=== PATIENT | male | born 1970 | race Caucasian/White ===

== ENCOUNTER 2016-12-08 15:55 | Emergency (ER) | payer MEDICARE, OTHER ==
[2016-12-08] MEDS ORDERED: ACETAMINOPHEN 325 MG TABLET PO ONE (16:52)
[2016-12-08] MEDS ORDERED: CLINDAMYCIN HCL 150 MG CAPSULE PO ONE (18:00)
[2016-12-08 18:26] VITALS: BP 138/81
--- NOTE | 2016-12-11 09:19 | ER Document Report ---
HPI - HPI Patient complains to provider of: fish hook in finger Pain Level: 1 Context: Patient is a 46-year-old male presents emergency Department with a fishhook in his right ring finger. Patient states that he was cleaning out his garage when he went to pick something up and hit a pack of fishhooks with one puncture packaging into his right ring finger. Patient states this is brand-new pack not had any exposure to water. Tetanus is up-to-date from a month ago. On Plavix due to history of coronary artery disease was 10 coronary stents - DERM Skin Color: Normal Past Medical History - Social History Smoking Status: Current Every Day Smoker Frequency of alcohol use: Rare Drug Abuse: None Family History: Reviewed & Not Pertinent Patient has suicidal ideation: No Patient has homicidal ideation: No - Past Medical History Cardiac Medical History: Reports: Hx Coronary Artery Disease, Hx Heart Attack, Hx Hypercholesterolemia, Hx Hypertension Endocrine Medical History: Denies: Hx Diabetes Mellitus Type 1, Hx Diabetes Mellitus Type 2 Renal/ Medical History: Denies: Hx Peritoneal Dialysis Malignancy Medical History: Reports Hx Skin Cancer Psychiatric Medical History: Reports: Hx Depression Past Surgical History: Reports: Hx Cardiac Catheterization - STENTS, Hx Orthopedic Surgery - L PINKY AMPUTATED - Immunizations Hx Diphtheria, Pertussis, Tetanus Vaccination: Yes - not within 5 years Vertical Provider Document - CONSTITUTIONAL Agree With Documented VS: Yes Exam Limitations: No Limitations General Appearance: WD/WN, No Apparent Distress - INFECTION CONTROL TRAVEL OUTSIDE OF THE [place] IN LAST 30 DAYS: No - RESPIRATORY O2 Sat by Pulse Oximetry: 96 - CARDIOVASCULAR Pulses: Normal: Radial Notes: Capillary refill less than 2 seconds in all upper extremity digits bilaterally - MUSCULOSKELETAL/EXTREMETIES Musculoskeletal/Extremeties: MAEW, FROM, Non-Tender, No Edema - NEURO Level of Consciousness: Awake, Alert, Appropriate Motor/Sensory: No Motor Deficit, No Sensory Deficit - DERM Integumentary: Warm, Dry, No Rash Course - Re-evaluation Re-evalutation: 12/11/16 15:02 Alverda removed. Patient has been on antibiotics and told to follow-up with primary care as needed. - Vital Signs Vital signs: Temp Pulse Resp BP Pulse Ox 98.2 F 69 18 138/81 H 96 12/08/16 16:20 12/08/16 18:10 12/08/16 16:20 12/08/16 18:10 12/08/16 18:10 - Diagnostic Test Radiology reviewed: Image reviewed, Reports reviewed Procedures - Additional Procedures fish hook removal Notes: 12/11/16 14:58 using an 11 blade the entry wound was extended .5 cm to etract the ad Discharge - Discharge Clinical Impression: Fish hook injury of finger Condition: Good Disposition: HOME, SELF-CARE Instructions: Antibiotic Ointment Protection ([facility]), Non-Sutured Laceration ([facility] ), Prophylactic Antibiotic ([facility]) Additional Instructions: Be sure to follow-up with her primary care provider in one week for wound evaluation Prescriptions: Clindamycin HCl 300 mg PO Q6HP PRN #7 capsule PRN Reason: Forms: Elevated Blood Pressure, Return to Work Referrals: HYACINTH GARIBAY MD [COMMUNITY BASED STAFF] - Follow up as needed
== END 2016-12-08 18:10 | disposition home or self-care (01) ==
LOC: ER 15:55
DX: S61.244A Puncture wound with foreign body of right ring finger without damage to nail, initial encounter (principal); W26.8XXA Contact with other sharp object(s), not elsewhere classified, initial encounter; Y93.89 Activity, other specified; I25.10 Atherosclerotic heart disease of native coronary artery without angina pectoris; I25.2 Old myocardial infarction; I10 Essential (primary) hypertension; Z79.02 Long term (current) use of antithrombotics/antiplatelets; Z98.61 Coronary angioplasty status; Z85.828 Personal history of other malignant neoplasm of skin
CPT/HCPCS: 99283; 73140; 10120; A9270 ×2

== ENCOUNTER 2019-02-04 16:06 | Emergency (ER) | payer MEDICARE, OTHER ==
--- NOTE | 2019-02-04 16:38 | RADIOLOGY REPORT (SQ) ---
EXAM DESCRIPTION: FEMUR LEFT COMPLETED DATE/TIME: 02/04/2019 4:27 pm REASON FOR STUDY: puncture wound COMPARISON: None. NUMBER OF VIEWS: Four views. TECHNIQUE: Two radiographic images acquired of the left femur to include hip and knee in at least on e projection. LIMITATIONS: None. FINDINGS: MINERALIZATION: Normal. BONES: No acute fracture. No worrisome bone lesions. SOFT TISSUES: No obvious swelling or foreign body. OTHER: Incidental note is made of apparent vasectomy clips. IMPRESSION: No evidence of retained radiopaque foreign body or acute osseous injury. TECHNICAL DOCUMENTATION: JOB ID: [id number] [employer]- All Rights Reserved Reading location - IP/workstation name: [email or web address]
--- NOTE | 2019-02-04 17:35 | ER Document Report ---
HPI - HPI Time Seen by Provider: 02/04/19 17:03 Pain Level: 2 Context: Patient is a 48-year-old male who presents the emergency department with a chief complaint of a puncture wound to his left lower thigh. He was fishing and he was pulling a dog out of a catfish and 1 of it sharp fence punctured his left thigh. He is up-to-date on his tetanus shot. He has a past medical history of a CABG, which he takes Plavix for. He did not notice a large amount of blood from the area. He also has a past medical history of hypertension, hyperlipidemia, and GERD. - ROS Systems Reviewed and Negative: Yes All other systems reviewed and negative - CONSTITUTIONAL Constitutional: DENIES: Fever, Chills - NEURO Neurology: DENIES: Weakness - MUSCULOSKELETAL Musculoskeletal: REPORTS: Extremity pain - Left thigh - DERM Skin Color: Normal Skin Problems: Puncture Wound Past Medical History - Social History Smoking Status: Unknown if Ever Smoked Family History: Reviewed & Not Pertinent Patient has suicidal ideation: No Patient has homicidal ideation: No - Past Medical History Cardiac Medical History: Reports: Hx Coronary Artery Disease, Hx Heart Attack, Hx Hypercholesterolemia, Hx Hypertension Endocrine Medical History: Denies: Hx Diabetes Mellitus Type 1, Hx Diabetes Mellitus Type 2 Renal/ Medical History: Denies: Hx Peritoneal Dialysis Malignancy Medical History: Reports Hx Skin Cancer Psychiatric Medical History: Reports: Hx Depression Past Surgical History: Reports: Hx Cardiac Catheterization - STENTS, Hx Orthopedic Surgery - L PINKY AMPUTATED - Immunizations Hx Diphtheria, Pertussis, Tetanus Vaccination: Yes - not within 5 years Vertical Provider Document - CONSTITUTIONAL Agree With Documented VS: Yes Exam Limitations: No Limitations General Appearance: No Apparent Distress - INFECTION CONTROL TRAVEL OUTSIDE OF THE [place] IN LAST 30 DAYS: No - HEENT HEENT: Atraumatic, Normocephalic, PERRLA - NECK Neck: Normal Inspection - RESPIRATORY Respiratory: Breath Sounds Normal, No Respiratory Distress - CARDIOVASCULAR Cardiovascular: Regular Rate, Regular Rhythm Pulses: Normal: Radial, Posterior tibial, Dorsalis pedis - MUSCULOSKELETAL/EXTREMETIES Musculoskeletal/Extremeties: FROM, Tender - Left anterior thigh puncture wound, Edema - Very mild edema - NEURO Level of Consciousness: Awake, Alert, Appropriate - DERM Integumentary: Warm, Dry Course - Re-evaluation Re-evalutation: 02/04/19 17:35 Due to the patient being punctured by a catfish fin, he will be started on doxycycline to cover any vibrio infection. He is in agreement with this plan. I do not suspect patient has necrotizing fasciitis, or any life-threatening etiology at this time. His x-ray does not show any foreign body. No vascular compromise noted. Verbal discharge instructions were given to the patient. They verbalized understanding. They are stable for discharge. - Vital Signs Vital signs: Temp Pulse Resp BP Pulse Ox 98.3 F 90 14 137/93 H 97 02/04/19 16:15 02/04/19 16:15 02/04/19 16:15 02/04/19 16:15 02/04/19 16:15 Discharge - Discharge Clinical Impression: Puncture wound Condition: Stable Disposition: HOME, SELF-CARE Additional Instructions: You are seen today in the emergency department for a puncture wound from a catfish. You are being started on antibiotics. Make sure you take all your antibiotics as prescribed. Even if you start to feel better, please continue to take your medication. If you see any redness that spreads, please return to the emergency department. Please follow-up with your primary care provider in regards to this visit. You can take Tylenol 1000 mg every 6 hours as needed for your pain. Prescriptions: Acetaminophen [Acetaminophen Extra Strength] 1,000 mg PO Q6HP PRN #90 tablet PRN Reason: Pain Scale Of 1 Doxycycline Hyclate 100 mg PO BID #14 capsule Referrals: ZARIA GALDAMEZ MD [NO LOCAL MD] - Follow up in 1 week
[2019-02-04] MEDS ORDERED: DOXYCYCLINE HYCLATE 100 MG TABLET PO ONE (17:42)
[2019-02-04 17:57] VITALS: BP 139/90
== END 2019-02-04 17:57 | disposition home or self-care (01) ==
LOC: ER 16:06
DX: S71.132A Puncture wound without foreign body, left thigh, initial encounter (principal); W56.59XA Other contact with other fish, initial encounter; Y93.89 Activity, other specified; I10 Essential (primary) hypertension; I25.10 Atherosclerotic heart disease of native coronary artery without angina pectoris; E11.9 Type 2 diabetes mellitus without complications; Z95.5 Presence of coronary angioplasty implant and graft; Z95.1 Presence of aortocoronary bypass graft; Z79.02 Long term (current) use of antithrombotics/antiplatelets
CPT/HCPCS: 99282; 73552; A9270